=== PATIENT | male | born 1940 | race Caucasian/White ===

== ENCOUNTER 2017-10-26 11:06 | Emergency (ER) | payer MEDICARE ==
[~2017-10-26] VITALS: Ht 185.4 cm; Wt 77.6 kg
[2017-10-26] MEDS ORDERED: IV NORMAL SALINE 1,000ML 1,000 ML IV ONE (11:45)
--- NOTE | 2017-10-26 11:55 | ED.ADGEN ---
Past History Past Medical History: CVA, GERD, Hypertension Past Surgical History: Appendectomy, Tonsillectomy Alcohol Use: Occasionally Drug Use: None Adult General Chief Complaint Chief Complaint weakness, resolved. HPI HPI Patient is a 77 year old male who presents with "I had a stroke". When asked specifically what he meant, he stated that yesterday around 10pm, pt rolled out of bed and was unable to get himself up, had bilateral flaccid upper and lower extremities and this persisted for at least 2 hours and then the pt fell asleep and was able to get up and stand, walk on his own but was still requiring support of holding onto furniture. He now says his symptoms have resolved. He' d had a recent cough/cold symptoms but this had resolved. Denies nausea, vomiting, chest pain, cough, runny nose or headache at this time. Review of Systems Review of Systems Constitutional: Denies fever or chills [] Eyes: Denies change in visual acuity, redness, or eye pain [] HENT: Denies nasal congestion or sore throat [] Respiratory: Denies cough or shortness of breath [] Cardiovascular: Denies chest pain GI: Denies abdominal pain, nausea, vomiting, bloody stools or diarrhea [] : Denies dysuria or hematuria [] Musculoskeletal: Denies back pain or joint pain [] Integument: Denies rash or skin lesions [] Neurologic: per hpi Current Medications Current Medications Current Medications Medications (Trade) Dose Ordered Sig/Armando Start Time Stop Time Status Last Admin Dose Admin Sodium Chloride 1,000 ml @ 1,000 mls/hr 1X ONCE 10/26/17 11:45 10/26/17 12:44 DC 10/26/17 12:01 1,000 MLS/HR Allergies Allergies Allergies Coded Allergies Type Severity Reaction Last Updated Verified codeine Allergy Unknown 05/28/15 Yes Physical Exam Physical Exam Constitutional: Well developed, well nourished, no acute distress, non-toxic appearance. [] HENT: Normocephalic, atraumatic, bilateral external ears normal, oropharynx dry , no oral exudates, nose normal. [] Eyes: PERRLA, EOMI, conjunctiva normal, no discharge. [] Neck: Normal range of motion, no tenderness, supple, no stridor. [] Cardiovascular:Heart rate regular with regular rhythm, no murmur [] Lungs & Thorax: Bilateral breath sounds clear to auscultation [] Abdomen: Bowel sounds normal, soft, no tenderness, no masses, no pulsatile masses. [] Skin: Warm, dry, no erythema, no rash. [] Back: No tenderness, no CVA tenderness. [] Extremities: No tenderness, no cyanosis, no clubbing, ROM intact, no edema. [] Neurologic: Alert and oriented X 3, normal motor function, normal sensory function, no focal deficits noted.CN II-XII intact, 5/5 bilateral hand associate professor physician / hip flexor/plantar and dorsiflexion, normal [id number] bilaterally, NIH 0 Psychologic: Affect normal, judgement normal, mood normal. [] Current Patient Data Vital Signs Vital Signs Date Time Temp Pulse Resp B/P (MAP) Pulse Ox O2 Delivery O2 Flow Rate FiO2 10/26/17 13:30 83 131/74 (93) 83 Room Air 10/26/17 13:00 20 10/26/17 11:06 98.8 Lab Results Laboratory Tests Test 10/26/17 11:57 10/26/17 12:50 White Blood Count 6.5 x10^3/uL (4.0-11.0) Red Blood Count 4.05 x10^6/uL (4.30-5.70) L Hemoglobin 12.3 g/dL (13.0-17.5) L Hematocrit 35.9 % (39.0-53.0) L Mean Corpuscular Volume 89 fL (79-100) Mean Corpuscular Hemoglobin 30 pg (25-35) Mean Corpuscular Hemoglobin Concent 34 g/dL (31-37) Red Cell Distribution Width 14.3 % (11.5-14.5) Platelet Count 185 x10^3/uL (140-400) Neutrophils (%) (Auto) 73 % (31-73) Lymphocytes (%) (Auto) 14 % (24-48) L Monocytes (%) (Auto) 12 % (0-9) H Eosinophils (%) (Auto) 0 % (0-3) Basophils (%) (Auto) 1 % (0-3) Neutrophils # (Auto) 4.8 x10^3uL (1.8-7.7) Lymphocytes # (Auto) 0.9 x10^3/uL (1.0-4.8) L Monocytes # (Auto) 0.8 x10^3/uL (0.0-1.1) Eosinophils # (Auto) 0.0 x10^3/uL (0.0-0.7) Basophils # (Auto) 0.0 x10^3/uL (0.0-0.2) Sodium Level 133 mmol/L (136-145) L Potassium Level 3.5 mmol/L (3.5-5.1) Chloride Level 96 mmol/L (98-107) L Carbon Dioxide Level 28 mmol/L (21-32) Anion Gap 9 (6-14) Blood Urea Nitrogen 12 mg/dL (8-26) Creatinine 0.8 mg/dL (0.7-1.3) Estimated GFR (Cockcroft-Gault) 93.5 BUN/Creatinine Ratio 15 (6-20) Glucose Level 94 mg/dL (70-99) Calcium Level 8.6 mg/dL (8.5-10.1) Magnesium Level 1.9 mg/dL (1.8-2.4) Total Bilirubin 0.4 mg/dL (0.2-1.0) Aspartate Amino Transferase (AST) 85 U/L (15-37) H Alanine Aminotransferase (ALT) 32 U/L (16-63) Alkaline Phosphatase 71 U/L (46-116) Total Protein 7.2 g/dL (6.4-8.2) Albumin 3.6 g/dL (3.4-5.0) Albumin/Globulin Ratio 1.0 (1.0-1.7) Urine Collection Type Unknown Urine Color Yellow Urine Clarity Clear Urine pH 7.0 Urine Specific [place] 1.015 Urine Protein 30 mg/dl (NEG-TRACE) Urine Glucose (UA) Neg mg/dL (NEG) Urine Ketones (Stick) Neg mg/dL (NEG) Urine Blood Large (NEG) Urine Nitrite Neg (NEG) Urine Bilirubin Neg (NEG) Urine Urobilinogen Dipstick 0.2 mg/dL (0.2 mg/dL) Urine Leukocyte Esterase Neg (NEG) Urine RBC 11-20 /HPF (0-2) Urine WBC Rare /HPF (0-4) Urine Squamous Epithelial Cells None /LPF Urine Bacteria 0 /HPF (0-FEW) Urine Mucus Slight /LPF EKG EKG [] Radiology/Procedures Radiology/Procedures ct head: Impression: 1. No acute intracranial process. Please note that CT can be relatively insensitive to acute ischemic infarction for up to 24 hours after symptom onset. 2. Moderate-severe nonspecific white matter changes, appear progressed from previous study. Old, bilateral white matter lacunar infarctions. Findings are compatible with chronic microvascular ischemic disease.[] Course & Med Decision Making Course & Med Decision Making Pertinent Labs and Imaging studies reviewed. (See chart for details) Symptoms do not sounds consistent with CVA, however other neurologic and electrolyte abnormality may be contributing. CT head, labs, urinalysis performed. No acute findings on ED workup. Pt has normal gait and strength in the ED. I strongly encouraged pt to f/u with neurologist sary and it pt's weakness returns , to immediately return to the ED for reevaluation. Final Impression Final Impression Weakness-resolved Problems: Dragon Disclaimer Dragon Disclaimer This electronic medical record was generated, in whole or in part, using a voice recognition dictation system. SONI TOMAS MD Oct 26, 2017 11:55
--- NOTE | 2017-10-26 12:01 | RAD ---
CT head without contrast History: Bilateral upper and lower extremity paralysis beginning at 2200 hours previous night until this morning, has since resolved. Comparison: CT head 08/09/2012. Procedure: Axial images are obtained of the head from the skull base through the vertex without IV contrast. One or more of the following individualized dose reduction techniques were utilized for the study: Automated exposure control Adjustment of mA and/or kV according to patient's size Use of iterative reconstruction technique. Findings: The ventricles and sulci are normal for the patient's age. No mass-effect, intracranial mass, midline shift, hemorrhage or obvious acute infarction is identified. Basilar cisterns are patent. There is moderate-severe bilateral white matter low attenuation, which appears progressed from previous study. There is evidence of old lacunar infarctions involving the bilateral frontal ventricular white matter as well. Bone windows demonstrate no significant calvarial abnormality. The visualized paranasal sinuses appear clear. Impression: 1. No acute intracranial process. Please note that CT can be relatively insensitive to acute ischemic infarction for up to 24 hours after symptom onset. 2. Moderate-severe nonspecific white matter changes, appear progressed from previous study. Old, bilateral white matter lacunar infarctions. Findings are compatible with chronic microvascular ischemic disease.
[2017-10-26 12:12] LABS: BASO % 1 % (0-3); EOS % 0 % (0-3); HEMATOCRIT 35.9 % (39.0-53.0); HEMOGLOBIN 12.3 g/dL (13.0-17.5); LYMPH # 0.9 x10^3/uL (1.0-4.8); LYMPH % 14 % (24-48); MEAN CORPUSCULAR HEMOGLOBIN 30 pg (25-35); MEAN CORPUSCULAR HGB CONC 34 g/dL (31-37); MEAN CORPUSCULAR VOLUME 89 fL (79-100); MONO # 0.8 x10^3/uL (0.0-1.1); MONO % 12 % (0-9); NEUT # 4.8 x10^3uL (1.8-7.7); NEUT % 73 % (31-73); PLATELET COUNT 185 x10^3/uL (140-400); RED BLOOD COUNT 4.05 x10^6/uL (4.30-5.70); RED CELL DISTRIBUTION WIDTH 14.3 % (11.5-14.5); WHITE BLOOD COUNT 6.5 x10^3/uL (4.0-11.0)
[2017-10-26 12:26] LABS: ALBUMIN 3.6 g/dL (3.4-5.0); CALCIUM 8.6 mg/dL (8.5-10.1); CREATININE 0.8 mg/dL (0.7-1.3); GFR 93.5; MAGNESIUM 1.9 mg/dL (1.8-2.4); POTASSIUM 3.5 mmol/L (3.5-5.1); TOTAL BILIRUBIN 0.4 mg/dL (0.2-1.0); TOTAL PROTEIN 7.2 g/dL (6.4-8.2)
[2017-10-26 13:20] LABS: BACTERIA,URINE 0 /HPF (0-FEW); BILIRUBIN,URINE NEG (NEG); CLARITY,URINE CLEAR; COLOR,URINE YELLOW; GLUCOSE,URINE NEG (NEG); NITRITE,URINE NEG (NEG); UROBILINOGEN,URINE 0.2 mg/dL (0.2 mg/dL); WBC,URINE RARE /HPF (0-4)
[2017-10-26 13:30] VITALS: BP 131/74
== END 2017-10-26 14:00 | disposition home or self-care (01) ==
LOC: ER 11:06
DX: R26.2 Difficulty in walking, not elsewhere classified (principal); I10 Essential (primary) hypertension; K21.9 Gastro-esophageal reflux disease without esophagitis; Z86.73 Personal history of transient ischemic attack (TIA), and cerebral infarction without residual deficits; Z88.5 Allergy status to narcotic agent; W06.XXXA Fall from bed, initial encounter; Y93.89 Activity, other specified; Y99.8 Other external cause status; Y92.89 Other specified places as the place of occurrence of the external cause
CPT/HCPCS: 36415; 70450; 80053; 81001; 83735; 85025; 96360; 99285-25; J7030

== ENCOUNTER → 2017-11-23 | Outpatient (CLI) | payer MEDICARE ==
[2017-10-26 13:30] VITALS: BP 131/74
--- NOTE | 2017-11-23 15:56 | RAD ---
Carotid ultrasound, 11/23/2017: History: TIA Duplex evaluation of the carotid arteries in neck was performed including grayscale, color-flow and spectral Doppler analysis. There is mild intimal thickening and smooth plaquing at the carotid bifurcations. The peak systolic velocity in the right internal carotid artery is 81 cm per sec with an end-diastolic velocity of 18 cm/s. The internal carotid to common carotid artery ratio is 1.1. The peak systolic velocity in the left internal carotid artery is 76 cm/s with an end-diastolic velocity of 21 cm/s. The internal carotid to common carotid artery ratio is also 1.1. These Doppler findings suggest narrowing in the 0-50% diameter range. Antegrade flow is present in both vertebral arteries in the neck. IMPRESSION: No duplex evidence of a significant carotid stenosis in the neck. Note: Stenosis calculations for CTA, MRA and conventional angiography are based upon determination of the distal ICA diameter in accordance with the NASCET methodology. Stenosis calculations for Doppler studies are derived from validated velocity criteria which are known to correlate with NASCET methodology of determining stenosis.
== END | disposition home or self-care (01) ==
LOC: US 12:42
PROVIDERS: ATTEND Psychiatry & Neurology Neurology
DX: G45.9 Transient cerebral ischemic attack, unspecified (principal); I67.89 Other cerebrovascular disease; F01.50 Vascular dementia, unspecified severity, without behavioral disturbance, psychotic disturbance, mood disturbance, and anxiety
CPT/HCPCS: 93880

== ENCOUNTER 2018-02-24 08:37 | Emergency (ER) | payer MEDICARE ==
[2018-02-24] MEDS ORDERED: EPINEPHrine SYRINGE 1 MG/10 ML SYRINGE ONE ×2 (09:00→09:05)
--- NOTE | 2018-02-24 09:55 | PHYS DOC ---
Past History Past Medical History: CVA, GERD, Hypertension Past Surgical History: Appendectomy, Tonsillectomy Alcohol Use: Occasionally Drug Use: None Adult General Chief Complaint Chief Complaint: CPR/FULL ARREST HPI HPI 78-year-old male presents via EMS as a CODE BLUE. EMS reports that the patient woke up this morning and was getting ready for the day. His was downstairs and she heard a loud thump on the floor. She immediately ran upstairs and found him down on the floor. EMS was called. When EMS arrived they found the patient have no pulse. They started CPR. They found him in to be in PEA and gave several rounds of epinephrine altering with compressions. They were unable to intubate the patient so they placed an LMA. In route, they had spontaneous return of circulation for a couple of minutes, but they lost pulses again. They continued CPR and epinephrine for a total of 6 rounds of epinephrine. On arrival to the ED he was in PEA with compressions underway. Review of Systems Review of Systems Unable to perform due to patient being unconscious and unresponsive Current Medications Current Medications Current Medications Medications (Trade) Dose Ordered Sig/Armando Start Time Stop Time Status Last Admin Dose Admin Epinephrine HCl (EPINEPHrine SYRINGE) 1 mg STK-MED ONCE 02/24/18 09:05 02/24/18 09:06 DC Allergies Allergies Allergies Coded Allergies Type Severity Reaction Last Updated Verified codeine Allergy Unknown 05/28/15 Yes Physical Exam Physical Exam Constitutional: Well developed, well nourished, severe distress [] HENT: Small abrasion to the top of his scalp.[] Eyes: Pupils fixed and dilated[] Neck: Mildly swollen anterior neck[] Cardiovascular: PEA [] Lungs & Thorax: Bilateral ronchi[] Abdomen: soft, no tenderness, no masses, no pulsatile masses. [] Skin: Warm, dry, no erythema, no rash. [] Back: [] Extremities: no cyanosis, no clubbing, no edema. [] Neurologic: unconscious, unresponsive. [] Psychologic: unable to evaluate [] EKG EKG From EMS printout: regular rhythm, rate 131, normal axis, ST elevation in V1, V2, V3. We were unable to get an EKG in the ED. [] Radiology/Procedures Radiology/Procedures [] Course & Med Decision Making Course & Med Decision Making Pertinent Labs and Imaging studies reviewed. (See chart for details) After the patient was moved to the ED bed, compressions continued with a chest compression device. After our monitors were tested the patient we discontinued the device and a pulse check. He had PEA so we resumed compressions gave another round of epi. We continued epinephrine about every 3 minutes along with continued compressions. At one point, we did get a pulse for about 3 minutes. Patient bradyed down and went back into PEA. The patient did not seem to be oxygenating well so I decided to change out the LMA and intubate him. On the first intubation attempt, it was difficult to pass the tube to the vocal cords despite using the glide scope for visualization. The tube did pass through and we continued ventilation with BVM. We had breath sounds on the right and questionable on the left. His oxygenation did not improve so I decided to remove the tube and reinserted. On the second attempt was also difficult. I was able to visualize passage of the tube through the vocal cords. This time we had good bilateral air movement. The patient's oxygenation did not improve however. There were unable to get a pulse back a second time despite medication. The patient's eyes were fixed and dilated. I declared time of 908. Please see code chart for more specific details of the code. In reviewing the EMS records, there are EKG showed ST elevation in V1 and V2 and V3. Based on available information, I believe the patient had an LA. [] Dragon Disclaimer Dragon Disclaimer This electronic medical record was generated, in whole or in part, using a voice recognition dictation system. Departure Departure: Referrals: BELEN SILVESTRE MD (PCP) ODALIS DAVEY DO Feb 24, 2018 09:54
== END 2018-02-24 11:50 | disposition expired ==
LOC: ER 08:37
DX: I46.9 Cardiac arrest, cause unspecified (principal); S00.01XA Abrasion of scalp, initial encounter; I10 Essential (primary) hypertension; K21.9 Gastro-esophageal reflux disease without esophagitis; Z86.73 Personal history of transient ischemic attack (TIA), and cerebral infarction without residual deficits; W19.XXXA Unspecified fall, initial encounter; Y93.89 Activity, other specified; Y99.8 Other external cause status; Y92.89 Other specified places as the place of occurrence of the external cause
CPT/HCPCS: 31500; 92950; 99285; J0171